=== PATIENT | female | born 2000 | race Caucasian/White ===

== ENCOUNTER 2022-07-25 13:07 | Emergency (ER) | payer OTHER, SELFPAY ==
[2022-07-25 13:09] VITALS: BP 124/89; PULSE 145; RESP 18; TEMP 36.9; O2SAT 96; BMI 21.9
[2022-07-25 13:46] LABS: Absolute Neutrophil Count 16.4 X10^3/uL (2.0-7.7); Basophil# 0.07 X10^3/uL; Basophil% 0.4 % (0-1); Eosinophil# 0.02 X10^3/uL; Eosinophils% 0.1 % (0-5); Hematocrit 41.3 % (37-47); Hemoglobin 13.3 g/dL (12.0-15.0); Lymphocyte % 4.7 % (19-41); Mean Corp Hgb Conc 32.2 g/dL (32-36); Mean Corpuscular Hgb 28.7 pg (27.0-32.0); Mean Platelet Vol. 11.5 fl (6.2-12.0); Monocyte# 1.43 X10^3/uL; Monocyte% 7.5 % (0-10); NRBC Flagged by Analyzer 0 % (0-5); Neutrophil # 16.36 X10^3/uL (2.7-7.7); Neutrophil % 86.4 % (47-70); Platelet Count 228 K/mm3 (150-450); RBC Distribution Width CV 12.7 % (11.6-14.6); RBC Distribution Width SD 41.6 fl (35.1-43.9); Red Blood Count 4.64 M/mm3 (4.2-5.4)
[2022-07-25 13:59] LABS: Anion Gap 8 (5-15); BUN 6 mg/dL (7-18); BUN/Creat Ratio 6.4 RATIO (10-20); Calcium,Total 9.6 mg/dL (8.5-10.1); Chloride 104 mmol/L (98-107); Creatinine, Serum 0.93 mg/dL (0.55-1.02); EST Glomerular Filtration Rate 81 mL/min (>60); Est Glom Filt Rate - Afr Amer 98 mL/min (>60); Estimated Creatinine Clearance 72.81 ml/min; Glucose 108 mg/dL (74-106); Sodium Level 136 mmol/L (136-145)
[2022-07-25 14:04] VITALS: BP 112/73; PULSE 95; RESP 16; O2SAT 98
[2022-07-25] MEDS: 0.9% Normal Saline 1,000 ML 1000 ML IV (14:07)
--- NOTE | 2022-07-25 16:06 | EX.ED.VIS.UR ---
HPI HPI - URI History of Present Illness Chief Complaint: Sore Throat Informant: patient Onset/Context/Timing Onset: Days (5) Context: Gradual Onset Timing: Continuous Quality: Sharp Location: Throat Worsened by: Swallowing, Eating Solids and Drinking Liquids Relieved by: - (Nothing) Associated Symptoms Associated Symptoms: Positive for Sinus Pressure, Myalgias and Nausea; Negative for Nasal Congestion, Headache, Vomiting, Diarrhea, Shortness of Breath, Chest Pain, Nonproductive cough, Hemoptysis or Productive Cough Narrative Narrative: Patient presents with a sore throat that has been getting worse over the last 5 days. Patient states she recently completed a course of antibiotics for strep throat. Patient states that her pain got better when she completed the course of antibiotics. Patient states that a few days after she finished the antibiotics the pain returned and has been getting progressively worse. Patient states her pain is worse with eating, drinking, and swallowing. Patient admits to some nausea but denies any vomiting. Patient admits to some generalized body aches. Patient admits to fever at home. Patient denies any cough. ROS ROS ED Constitutional Constitutional ED: Denies chills or fever(s) Eyes Eyes: Denies blurry vision or change in vision ENT ENT ED: Denies rhinorrhea or sore throat Cardiovascular Cardiovascular: Denies chest pain or palpitations Respiratory/Chest Respiratory/Chest: Denies cough or dyspnea Gastrointestinal Gastrointestinal: Denies nausea or vomiting Genitourinary Genitourinary ED: Denies dysuria or hematuria Musculoskeletal Musculoskeletal: Denies back pain or neck pain Integumentary Denies abscess or rash Neurologic Neurologic: Denies headache(s) or weakness Allergic/Immunologic Allergic/Immunologic ED: Denies mouth swelling or urticaria [facility] Medical History No acute medical problems Home Medications amoxicillin 875 mg-potassium clavulanate 125 mg tablet 875 mg PO Q12H #20 TABLETS 07/25/22 [Rx Last Taken Unknown] Allergy/AdvReac Type Severity Reaction Status Date / Time No Known Allergies Allergy Verified 07/25/22 14:02 Social History Smoking Status: Never smoker EXAM Physical Exam Const Vital Signs: 07/25/22 13:09 07/25/22 14:04 Temperature 98.4 F Temperature Source Temporal Pulse Rate 145 H 95 Respiratory Rate 18 16 Blood Pressure 124/89 H 112/73 Blood Pressure Mean 100 86 Pulse Ox 96 98 Oxygen Delivery Method Room Air Room Air Positive well nourished and well developed General Appearance ED: well developed and NAD HEENT Reports moist mucous membranes normocephalic Throat: posterior oropharynx abnormal Positive for edema and erythema; Negative for exudates Eyes PERRL and EOMs intact bilaterally Neck General: lymphadenopathy anterior cervical tender Resp normal respiratory effort and clear to auscultation bilaterally Cardio Rate: regular rate Rhythm: regular rhythm GI non-tender Palpation: soft Neuro oriented x3, CN's II-XII intact bilaterally and no sensory deficits noted Sensorium / Orientation: alert Motor Exam: strength 5/5 throughout Psych mental status grossly normal MDM MDM MDM Narrative Medical decision making narrative: Differential diagnosis includes recurrent strep pharyngitis, COVID-19 infection, influenza infection, and other viral upper respiratory infection. CBC will be obtained to assess for leukocytosis and anemia. Basic metabolic profile will be obtained to assess for electrolyte abnormality and renal function. COVID-19 rapid antigen will be obtained to assess for COVID infection. Influenza A and influenza B rapid antigen will be obtained to assess for influenza infection. Rapid strep will be obtained to assess for streptococcal pharyngitis. Lab Data Attestation: I reviewed the patient's lab results. Lab results narrative: CBC shows a leukocytosis of 19.0. The remainder was within normal limits. Basic metabolic profile was reviewed and was within normal limits. COVID-19 rapid antigen was reviewed and was negative. Influenza A and influenza B rapid antigens were reviewed and were negative. Rapid strep was reviewed and was negative. Labs: Laboratory Results - last 24 hr 07/25/22 07/25/22 13:40 13:40 WBC 19.0 H RBC 4.64 Hgb 13.3 Hct 41.3 MCV 89.0 MCH 28.7 MCHC 32.2 RDW Std Deviation 41.6 RDW Coeff of Walter 12.7 Plt Count 228 MPV 11.5 Immature Gran % (Auto) 0.900 Neut % (Auto) 86.4 H Lymph % (Auto) 4.7 L [place] % (Auto) 7.5 Eos % (Auto) 0.1 Baso % (Auto) 0.4 Absolute Neuts (auto) 16.4 H Absolute Lymphs (auto) 0.90 Nucleated RBC % 0 Sodium 136 Potassium 4.0 Chloride 104 Carbon Dioxide 24.0 Anion Gap 8 BUN 6 L Creatinine 0.93 Estim Creat Clear Calc 72.81 Est GFR (MDRD) Af Amer 98 Est GFR (MDRD) Non-Af 81 BUN/Creatinine Ratio 6.4 L Glucose 108 H Calcium 9.6 Treatment and Re-Evaluation Narrative: Patient was given IV fluids. Patient is feeling somewhat better on reevaluation. Patient was advised of her findings. Given the leukocytosis, recent strep infection, and the fact that she meets 3 out of 4 Cent[facility] criteria, we will cover the patient with an extended course of antibiotics to cover for bacterial pharyngitis. Patient was instructed to follow-up with her primary care physician in 5 to 7 days. Patient was instructed return if worse in any way. Patient understood and was agreeable with the plan. All questions were answered. Discharge Plan Triage Chief Complaint: Sore Throat Other Complaint: Fever ED Provider: Garrett Martinez Dx/Rx/DC Orders Clinical Impression: Acute pharyngitis Instructions: ED Pharyngitis, Report Pending Prescriptions: New amoxicillin-pot clavulanate [amoxicillin-pot clavulanate] 875-125 mg tablet 875 mg PO Q12H Qty: 20 0RF Primary Care Provider: Care Physician,No Primary Referrals: Mikey Silver MD [Med Staff - Active Staff] - 5-7 Days Care Physician,No Primary [Primary Care Provider] - Disposition Disposition: Home, Self Care
[2022-07-25 16:18] VITALS: BP 107/75; PULSE 95; RESP 16; O2SAT 97
[2022-07-25] MEDS: Amox/Clavulanate 875 MG Tablet PO (16:22)
== END 2022-07-25 16:27 | disposition home or self-care (01) ==
PROVIDERS: Emergency Provider Emergency Medicine; Visit Provider Emergency Medicine
DX: J02.9 Acute pharyngitis, unspecified (principal)
CPT/HCPCS: 80048; 85025; 87428; 87880; 96360; 99283; J7030; A4216

== ENCOUNTER 2022-07-27 12:56 | Emergency (ER) | payer OTHER, SELFPAY ==
[2022-07-27 12:57] VITALS: BP 103/84; PULSE 123; RESP 18; TEMP 36.1; O2SAT 98; BMI 19.6
--- NOTE | 2022-07-27 13:10 | CT_ITS ---
STUDY: CT SOFT TISSUE NECK WITH CONTRAST REASON FOR EXAM: Female, 22 years old. strep throat 2 weeks ago, trouble swallowing and worse pain, antibiotics started 2 days ago. right peritonsillar abscess TECHNIQUE: The patient was scanned in a multi-detector CT scanner. High resolution transaxial imaging was performed following intravenous administration of 75 ml of Isovue 370 contrast material. Sagittal and coronal images were reconstructed. Individualized dose optimization techniques were used for this CT. COMPARISON: None. right peritonsillar abscess FINDINGS: Normal bilateral parotid glands. Normal bilateral test lead spaces. Normal bilateral parapharyngeal spaces. Normal bilateral carotid spaces. Normal bilateral sublingual and submandibular glands and spaces. Normal visualized nasopharynx. Normal retropharyngeal space. Normal perivertebral space. The visualized tongue, tongue base and oropharynx are normal. There are enlarged lymph nodes of the neck, with preservation of normal reji architecture, consistent with lymphadenopathy. There is demonstrated right peritonsillar abscess measuring 23 x 26mm. Left tonsillitis. Normal epiglottis, bilateral vallecula and hypopharynx. The pre-epiglottic and paraglottic adipose spaces are normal. Normal visualized bilateral piriform sinuses, aryepiglottic folds, vocal cords, and arytenoid-cricoid articulations. Normal subglottic trachea. Normal bilateral lobes of the thyroid gland. Normal visualized pulmonary apices. Normal visualized paranasal sinuses. Normal visualized cervical spine. CT/Soft Tissue Neck WITH Contrast IMPRESSION: Left tonsillitis. Right peritonsillar abscess. This is consistent with the patient''s history. Bilateral neck adenopathy. Non standard communication findings protocol was initiated. Electronically Signed: Jose Morales MD at 14:13 EDT ,
--- NOTE | 2022-07-27 13:12 | EX.ED.DYSGE1 ---
HPI <CARLITA Murillo - Last Filed: 07/27/22 14:33> History of Present Illness Chief Complaint: Sore Throat Narrative Narrative: Patient was diagnosed with strep throat on July 11 and completed 10 days of antibiotics. She felt better for about 2 to 3 days and developed a sore throat again a couple days ago. She was seen in the ER July 25 and had negative strep test but was covered with Augmentin. She is taking the antibiotic and ibuprofen but her sore throat is worse especially on the right. It is causing difficulty and pain with swallowing. She was sent from urgent care to rule out peritonsillar abscess. She is able to swallow and is not having difficulty handling oral secretions. No fever or chills. PFSH <CARLITA Murillo Last Filed: 07/27/22 14:33> [facility] Medical History (Updated 07/27/22 @ 14:36 by Brittany Acevedo) History of strep sore throat No acute medical problems Home Medications amoxicillin 875 mg-potassium clavulanate 125 mg tablet 875 mg PO Q12H #20 TABLETS 07/25/22 [Rx Last Taken Unknown] Allergy/AdvReac Type Severity Reaction Status Date / Time No Known Allergies Allergy Verified 07/27/22 13:00 Social History Smoking Status: Never smoker ROS <CARLITA Murillo - Last Filed: 07/27/22 14:33> ROS ED ROS Narrative Constitutional: Negative for fever, chills, malaise. ENT: Positive for sore throat. CVS: Negative for chest pain. Respiratory: Negative for shortness of breath, cough. GI: Negative for abdominal pain, nausea, vomiting. Neuro: Negative for headache. Skin: Negative for rash. EXAM <CARLITA Murillo Last Filed: 07/27/22 14:33> Physical Exam Narrative Exam Narrative: CONST: Patient sitting in no acute distress. EYES: Normal inspection. ENT: Moist mucous membranes, pharyngeal erythema with enlarged right tonsil that touches the uvula with no deviation. Handling secretions normally, no trismus or tongue elevation, sublingual space is soft. Mild change in voice. NECK: Normal inspection. No stridor. No submandibular or submental swelling. RESP: No respiratory distress, CTAB. CVS: Regular rate and rhythm, no murmur, no gallop. SKIN: Color normal, no rash, warm, dry, intact. EXTREMITIES: Normal appearance, no pedal edema. NEURO: Oriented x4. PSYCH: Normal affect. Const Vital Signs: 07/27/22 12:57 07/27/22 14:36 Temperature 97 F L Temperature Source Temporal Pulse Rate 123 H 93 Respiratory Rate 18 18 Blood Pressure 103/84 H Blood Pressure Mean 90 Pulse Ox 98 99 Oxygen Delivery Method Room Air <Dr. Garrett Martinez DO - Last Filed: 07/27/22 21:18> Physical Exam Const Vital Signs: 07/27/22 12:57 07/27/22 14:36 Temperature 97 F L Temperature Source Temporal Pulse Rate 123 H 93 Respiratory Rate 18 18 Blood Pressure 103/84 H Blood Pressure Mean 90 Pulse Ox 98 99 Oxygen Delivery Method Room Air MDM <CARLITA Murillo - Last Filed: 07/27/22 14:33> MDM MDM Narrative Medical decision making narrative: History gathered from: Patient and father Patient with recent tonsillitis on 2 days of Augmentin presents with worsening pain and swelling. She appears well and nontoxic. Heart rate 123, BP 103/84, otherwise normal vital signs. She does have significant right tonsillar swelling that is touching the uvula. No trismus she is handling oral secretions appropriately. Lungs clear. Labs show no leukocytosis is trending down to 11.1. Normal electrolytes and renal function. CT shows 2.6 x 2.3 cm right peritonsillar abscess. Patient was given a liter of IV fluids and Decadron. Case discussed with on-call ENT physician, Dr. Mancini, who agreed with the plan of treatment and will see her in the office 8 AM tomorrow for I&D. Patient was comfortable with this plan. We will keep taking ibuprofen, Augmentin, increasing hydration and was discharged in stable condition. Differential: Tonsillitis, peritonsillar abscess, deep space infection Lab Data Attestation: I reviewed the patient's lab results. Labs: Laboratory Results - last 24 hr 07/27/22 07/27/22 13:25 13:25 WBC 11.1 H RBC 4.56 Hgb 13.0 Hct 40.6 MCV 89.0 MCH 28.5 MCHC 32.0 RDW Std Deviation 41.1 RDW Coeff of Walter 12.5 Plt Count 244 MPV 11.5 Immature Gran % (Auto) 0.800 Neut % (Auto) 76.4 H Lymph % (Auto) 11.4 L [place] % (Auto) 9.8 Eos % (Auto) 1.1 Baso % (Auto) 0.5 Absolute Neuts (auto) 8.5 H Absolute Lymphs (auto) 1.27 Nucleated RBC % 0 Sodium 137 Potassium 3.5 Chloride 107 Carbon Dioxide 26.0 Anion Gap 4 L BUN 9 Creatinine 0.95 Estim Creat Clear Calc 70.35 Est GFR (MDRD) Af Amer 96 Est GFR (MDRD) Non-Af 80 BUN/Creatinine Ratio 9.5 L Glucose 142 H Calcium 9.4 Radiography Diagnostic Testing: Clinical Impression(s) from Imaging Studies Soft Tissue Neck CT 07/27/22 13:10 IMPRESSION: Left tonsillitis. Right peritonsillar abscess. This is consistent with the patient''s history. Bilateral neck adenopathy. Non standard communication findings protocol was initiated. Electronically Signed: Jose Morales MD at 14:13 EDT , ADDENDUM: 07/27/22 1423 IMPRESSION: Left tonsillitis. Right peritonsillar abscess. This is consistent with the patient''s history. Bilateral neck adenopathy. Non standard communication findings protocol was initiated. N.B. : Joaquin Mata DO, confirmed on 07/27/2022 14:16:58 (ET) that the healthcare facility has received the radiology report. Electronically Signed: Jose Morales MD at 14:13 EDT , <Dr. Garrett Martinez DO - Last Filed: 07/27/22 21:18> [facility] Lab Data Labs: Laboratory Results - last 24 hr 07/27/22 07/27/22 13:25 13:25 WBC 11.1 H RBC 4.56 Hgb 13.0 Hct 40.6 MCV 89.0 MCH 28.5 MCHC 32.0 RDW Std Deviation 41.1 RDW Coeff of Walter 12.5 Plt Count 244 MPV 11.5 Immature Gran % (Auto) 0.800 Neut % (Auto) 76.4 H Lymph % (Auto) 11.4 L [place] % (Auto) 9.8 Eos % (Auto) 1.1 Baso % (Auto) 0.5 Absolute Neuts (auto) 8.5 H Absolute Lymphs (auto) 1.27 Nucleated RBC % 0 Sodium 137 Potassium 3.5 Chloride 107 Carbon Dioxide 26.0 Anion Gap 4 L BUN 9 Creatinine 0.95 Estim Creat Clear Calc 70.35 Est GFR (MDRD) Af Amer 96 Est GFR (MDRD) Non-Af 80 BUN/Creatinine Ratio 9.5 L Glucose 142 H Calcium 9.4 Radiography Diagnostic Testing: Clinical Impression(s) from Imaging Studies Soft Tissue Neck CT 07/27/22 13:10 IMPRESSION: Left tonsillitis. Right peritonsillar abscess. This is consistent with the patient''s history. Bilateral neck adenopathy. Non standard communication findings protocol was initiated. Electronically Signed: Jose Morales MD at 14:13 EDT , ADDENDUM: 07/27/22 1423 IMPRESSION: Left tonsillitis. Right peritonsillar abscess. This is consistent with the patient''s history. Bilateral neck adenopathy. Non standard communication findings protocol was initiated. N.B. : Joaquin Mata DO, confirmed on 07/27/2022 14:16:58 (ET) that the healthcare facility has received the radiology report. Electronically Signed: Jose Morales MD at 14:13 EDT , Treatment and Re-Evaluation :: I have personally performed a face to face assessment of the patient and have reviewed the DAPHNIE Note. I performed a substantive portion of the visit including all aspects of the following. My delacruz findings include: History: Patient presents with sore throat that has been getting worse over the past few days. Patient was seen here couple days ago and was started on Augmentin for possible streptococcal pharyngitis. Patient states she has been taking this as prescribed. Patient states her throat is worse today. Patient states it is worse on the right. Patient states her pain is worse with swallowing. Patient denies any fevers or chills. Exam: Vital signs are stable. Patient is afebrile. Patient is in no acute distress. Oral mucosa is pink and moist. There is edema of the tonsils on the right. There is erythema of the tonsils bilaterally. There are no exudates noted. There is no trismus noted. Neck is supple. Trachea is midline. There is no JVD. There is tender anterior cervical lymphadenopathy noted. Cranial nerves II through XII are intact. There are no focal motor or sensory deficits noted. Heart was regular rate and rhythm. Lungs are clear and equal bilaterally. Abdomen is soft and nontender. Medical Decision Making: Patient was advised that this is most likely a peritonsillar abscess. CBC will be obtained to assess for leukocytosis and anemia. Basic metabolic profile will be obtained to assess for renal function and electrolyte abnormality. CT scan of soft tissue neck will be obtained to assess for peritonsillar abscess. Patient was given a dose of dexamethasone here. Patient took her Augmentin earlier today. CBC was reviewed and showed a slight leukocytosis of 11.1. Absolute neutrophil count was mildly elevated at 8.5. Basic metabolic profile was reviewed and was essentially within normal limits. Patient did have a slightly elevated glucose of 142. Case was discussed with Dr. Mancini from ENT. He will follow-up with the patient tomorrow morning. Patient and father understood and were agreeable with the plan. All questions were answered. Discharge Plan Triage Chief Complaint: Sore Throat ED Midlevel Provider: Jillian Reese ED Provider: Garrett Martinez Dx/Rx/DC Orders Clinical Impression: Peritonsillar abscess Instructions: ED Peritonsillar Abscess Prescriptions: No Action amoxicillin-pot clavulanate [amoxicillin-pot clavulanate] 875-125 mg tablet 875 mg PO Q12H Qty: 20 0RF Primary Care Provider: Care Physician,No Primary Referrals: Ashwin Mancini MD [Med Staff - Active Staff] - Care Physician,No Primary [Primary Care Provider] - Activity Restrictions/Additional Instructions: Show up to Dr. Mancini's office 880 a.m. tomorrow morning. This is the ENT specialist and he will drain the abscess if needed. Drink plenty of fluids overnight. Disposition Disposition: Home, Self Care Discharge Date/Time: 07/27/22 14:40
[2022-07-27 13:34] LABS: Absolute Lymphocyte Count 1.27 X10^3/uL (0.83-4.51); Absolute Neutrophil Count 8.5 X10^3/uL (2.0-7.7); Basophil# 0.06 X10^3/uL; Basophil% 0.5 % (0-1); Eosinophil# 0.12 X10^3/uL; Eosinophils% 1.1 % (0-5); Hematocrit 40.6 % (37-47); Lymphocyte # 1.27 X10^3/ul (0.83-4.51); Lymphocyte % 11.4 % (19-41); Mean Corpuscular Hgb 28.5 pg (27.0-32.0); Mean Platelet Vol. 11.5 fl (6.2-12.0); Monocyte# 1.09 X10^3/uL; Monocyte% 9.8 % (0-10); NRBC Flagged by Analyzer 0 % (0-5); Neutrophil % 76.4 % (47-70); Platelet Count 244 K/mm3 (150-450); RBC Distribution Width CV 12.5 % (11.6-14.6); RBC Distribution Width SD 41.1 fl (35.1-43.9); Red Blood Count 4.56 M/mm3 (4.2-5.4); White Blood Count 11.1 K/mm3 (4.4-11.0)
[2022-07-27 13:48] LABS: Anion Gap 4 (5-15); BUN 9 mg/dL (7-18); BUN/Creat Ratio 9.5 RATIO (10-20); Calcium,Total 9.4 mg/dL (8.5-10.1); Chloride 107 mmol/L (98-107); Creatinine, Serum 0.95 mg/dL (0.55-1.02); EST Glomerular Filtration Rate 80 mL/min (>60); Est Glom Filt Rate - Afr Amer 96 mL/min (>60); Estimated Creatinine Clearance 70.35 ml/min; Glucose 142 mg/dL (74-106); Potassium 3.5 mmol/L (3.5-5.1); Sodium Level 137 mmol/L (136-145)
[2022-07-27] MEDS: dexAMETHasone 10 MG/ML Vial IV (14:00)
[2022-07-27] MEDS: 0.9% Normal Saline 1,000 ML 999 ML IV (14:01)
[2022-07-27 14:36] VITALS: PULSE 93; RESP 18; O2SAT 99
== END 2022-07-27 14:40 | disposition home or self-care (01) ==
PROVIDERS: Physician Assistant; Emergency Provider Emergency Medicine; Visit Provider Emergency Medicine
DX: J36 Peritonsillar abscess (principal)
CPT/HCPCS: 70491; 80048; 85025; 96374; 99283; J7030; Q9967; A4216

== ENCOUNTER 2024-04-28 09:33 | Emergency (ER) | payer BC, SELFPAY ==
[2024-04-28 09:34] VITALS: BP 124/80; PULSE 137; RESP 16; TEMP 36.8; O2SAT 100; BMI 21.5
--- NOTE | 2024-04-28 09:59 | EX.ED.VIS.UR ---
HPI HPI - URI History of Present Illness Chief Complaint: Nausea/Vomiting/Diarrhea Detail of Chief Complaint: Cough and fever. Informant: patient Onset/Context/Timing Onset: Today and Yesterday Context: Gradual Onset Timing: Continuous Current Severity: Mild Maximum Severity: Mild Associated Symptoms Associated Symptoms: Positive for Nausea, Vomiting, Diarrhea and Productive Cough (Yellowish sputum.) Narrative Narrative: Healthy 24-year-old female no seen past medical history. URI symptoms with productive cough of yellowish sputum with nausea, vomiting and diarrhea since 7:00 last night. She has had URI symptoms for several days with a fever of high as 101.9. She took a COVID and flu test at home she states it was -2 days ago. Denies any abdominal pain. No hemoptysis. Prior similar symptoms: Yes Recent Illness/Hospitalization: No ROS ROS ED ROS Narrative Nausea, vomiting diarrhea. Fever. Cough of yellow sputum. Constitutional Constitutional ED: Reports fever(s) ENT ENT ED: Denies ear pain Cardiovascular Cardiovascular: Denies chest pain Respiratory/Chest Respiratory/Chest: Reports cough and sputum Gastrointestinal Gastrointestinal: Reports diarrhea, nausea and vomiting; Denies abdominal pain, constipation or melena Genitourinary Genitourinary ED: Denies dysuria or hematuria Musculoskeletal Musculoskeletal: Denies arthralgias Integumentary Denies abscess Neurologic Neurologic: Denies headache(s) Psychiatric Psychiatric: Denies anxiety or depression Endocrine Endocrinology: Denies cold intolerance Hematologic/Lymphatic Hematologic/Lymphatic: Denies easy bleeding Allergic/Immunologic Allergic/Immunologic ED: Denies mouth swelling PFSH PFSH Medical History History of strep sore throat No acute medical problems Home Medications ?Medication ?Instructions ?Recorded ?Last Taken ?Type amoxicillin 875 mg-potassium 875 mg PO Q12H #20 TABLETS 07/25/22 Unknown Rx clavulanate 125 mg tablet norethindrone 1 mg-ethinyl 1 tab PO DAILY 04/28/24 Unknown History estradiol 20 mcg (21)-iron 75 mg (7) tablet (Yvette Fe 05/02 ()) ondansetron 4 mg disintegrating 4 mg PO Q6H PRN nausea and 04/28/24 Unknown Rx tablet vomiting #7 tabs Allergy/AdvReac Type Severity Reaction Status Date / Time No Known Allergies Allergy Verified 04/28/24 09:34 Social History Smoking Status: Current every day smoker tobacco type: e-cigarettes EXAM Physical Exam Narrative Exam Narrative: 24-year-old female no acute distress. Vital signs are stable except she is tachycardic clinically appears dehydrated. Pulse ox 100% on room air no signs of hypoxia. She is afebrile. H EENT exam extremities membranes. Neck nontender no lymphadenopathy. Lungs dry cough. No rales or rhonchi. Equal symmetrical. Heart tachycardic 135 no murmur. Chest wall ribs nontender. Abdomen soft nontender. Back nontender. Moving all 4 extremities. Nontender no edema. Neurologically patient is awake alert. Answer questions following commands. Normal motor strength. Const Vital Signs: 04/28/24 09:34 Temperature 98.3 F Temperature Source Oral Pulse Rate 137 H Respiratory Rate 16 Blood Pressure 124/80 H Blood Pressure Mean 94 Pulse Ox 100 Oxygen Delivery Method Room Air Positive well nourished and well developed; Negative for obese, cachectic or contractures General Appearance ED: well developed and NAD; Negative for cachectic, contractures, cyanotic, diaphoretic or pallor Nutritional Appearance: Negative for cachectic or obese HEENT Reports dry mucous membranes; Denies moist mucous membranes normocephalic and atraumatic Face and Sinus: Negative for sinus tenderness Mouth ED: Yes dry mucous membranes Mouth: dry mucous membranes Throat: posterior oropharynx normal Eyes PERRL and EOMs intact bilaterally General Eye ED: Negative for pale conjunctiva or scleral icterus Neck no lymphadenopathy, supple, no meningeal signs and no JVD General: Negative for anterior neck swelling Resp normal respiratory effort and clear to auscultation bilaterally Resp Narrative: Dry cough. Effort and Inspection: Negative for retractions Auscultation: Negative for rales, rhonchi, wheezes or diminished lung sounds Cardio S1 normal heart sound, S2 normal heart sound and no murmurs Rate: tachycardic GI non-tender, non-distended and no masses Inspection: Negative for abdominal distention Palpation: soft; Negative for tender or guarding Back/Spine no CVA tenderness and normal ROM General Back: Negative for CVA tenderness Cervical Spine: Negative for cervical spine tenderness Thoracic Spine / Upper Back: Negative for thoracic spinal tenderness Lumbar Spine / Lower Back: Negative for lumbar spinal tenderness Sacrum: Negative for tenderness Extremity normal to inspection and full ROM General Extremety ED: Negative for cyanosis or tenderness General Extremity: Negative for cyanosis Neuro oriented x3 and CN's II-XII intact bilaterally Sensorium / Orientation: alert, oriented to person, oriented to place and oriented to time; Negative for orientation impaired, lethargic or stuporous Motor Exam: strength 5/5 throughout Psych mental status grossly normal Attitude: No agitated Mood & Affect: Negative for depressed, anxious or tearful Skin General Skin Exam: Negative for jaundice or pallor Lesions: no lesions Rashes: no rashes MDM MDM MDM Narrative Medical decision making narrative: 24-year-old female clinically appears dehydrated. Most likely viral syndrome. IV fluids. Zofran. P.o. fluid challenge. I am obtaining a chest x-ray to rule out pneumonia. She has had recent negative COVID and flu testing at home. Repeat exam patient doing well at 11:30 AM. Abdomen soft and nontender. Her nausea is resolved with Zofran. She received a liter normal saline. She has been able to hold down liquids. She feels comfortable being discharged home. Treated as a viral syndrome. Prescription sent to her pharmacy for Zofran. History & Record Review Discussion w/independent historian: Patient and Friend Additional record(s) reviewed:: Prior inpatient record, Prior outpatient record and Prior ED visit Radiography Chest X-Ray - ED: 2 View, Read by ED Physician, Normal, Heart, Lungs, Mediastinum, No Acute Disease, Chronic Changes and - (Scoliosis of the thoracic spine.) Diagnostic Testing: Clinical Impression(s) from Imaging Studies Chest X-Ray 04/28/24 10:10 IMPRESSION: Normal x-ray examination of the chest. Electronically Signed: Mlaachi Mckenna MD at 11:23 EST , Chest x-ray, 2 views, AP and lateral, interpreted by myself shows no acute process. Normal cardiac silhouette. Normal lung guadarrama. No pneumonia. Scoliosis of the thoracic spine. Discharge Plan Triage Chief Complaint: Nausea/Vomiting/Diarrhea ED Provider: Joaquin Rodriguez Dx/Rx/DC Orders Clinical Impression: Viral syndrome, Vomiting, Acute dehydration Instructions: ED Dehydration (Adult), ED Viral Syndrome (Adult) Prescriptions: New ondansetron 4 mg tablet,disintegrating 4 mg PO Q6H PRN (Reason: nausea and vomiting) Qty: 7 0RF No Action amoxicillin-pot clavulanate [amoxicillin-pot clavulanate] 875-125 mg tablet 875 mg PO Q12H Qty: 20 0RF norethindrone-e.estradiol-iron [Yvette Fe 05/02 (28)] 1 mg-20 mcg (21)/75 mg (7) tablet 1 tab PO DAILY Primary Care Provider: Care Physician,No Primary Referrals: Garrett Spicer MD [Med Staff - Take Out Waiter] - 3-5 Days if not improving Care Physician,No Primary [Primary Care Provider] - Activity Restrictions/Additional Instructions: Zofran as needed for nausea. Tylenol and Motrin for any fever. Plenty of fluids and rest. Water, 7-Up and Gatorade. Slowly increase diet as tolerated. Follow-up with a local primary care physician if not improving or return if you are feeling worse or unable to keep fluids down. Print Language: Portuguese Disposition Disposition: Home, Self Care
[2024-04-28] MEDS: 0.9% Normal Saline (1000mL) 1,000 ML 1000 ML IV (10:06)
[2024-04-28] MEDS: Ondansetron 4 MG/2 ML Vial IV (10:06)
--- NOTE | 2024-04-28 10:10 | RAD_ITS ---
STUDY: X-RAY CHEST REASON FOR EXAM: Female, 24 years old. cough TECHNIQUE: PA and lateral views of the chest. COMPARISON: None. FINDINGS: The lungs are clear and expanded. There is no demonstrated pleural abnormality. Normal size heart. Normal mediastinum and miranda. Normal visualized pulmonary arteries. Normal visualized aortic arch and descending thoracic aorta. There is a dextroscoliosis of the thoracic spine. Normal visualized ribs, clavicles, and shoulders. There is no demonstrated abnormality of the visualized soft tissue structures of the upper abdomen. RAD/Chest PA and Lateral IMPRESSION: Normal x-ray examination of the chest. Electronically Signed: Malachi Mckenna MD at 11:23 EST ,
[2024-04-28 11:30] VITALS: BP 124/80; PULSE 137; RESP 16; TEMP 36.8; O2SAT 100
--- NOTE | 2024-04-28 14:11 | CM.ED ---
Social Work Reason for consult: No PCP Patient verified that she does not currently have a PCP. [facility] provider given to patient. No further needs identified at this time. Angie Avila, [employer] ADMINISTRATOR, [employer]ACHINE OPERATOR
== END 2024-04-28 11:40 | disposition home or self-care (01) ==
PROVIDERS: Emergency Provider Emergency Medicine; Visit Provider Emergency Medicine
DX: B34.9 Viral infection, unspecified (principal); R11.2 Nausea with vomiting, unspecified; E86.0 Dehydration
CPT/HCPCS: 71046; 96361; 96374; 96376; 99283; A4216; J2405

== ENCOUNTER 2024-07-19 20:48 | Emergency (ER) | payer BC, SELFPAY ==
[2024-07-19 20:48] VITALS: BP 130/75; PULSE 105; RESP 16; TEMP 36.8; O2SAT 97; BMI 22.1
--- NOTE | 2024-07-19 20:51 | RAD_ITS ---
PROCEDURE: HAND MIN 3 VIEWS 07/19/2024 REASON FOR EXAM: INJURY TECHNIQUE: 3 view(s) of the right hand COMPARISON: None FINDINGS: No acute fracture or dislocation. Joint spaces are maintained. No significant soft tissue swelling. No radiopaque foreign body. RAD/Hand Min 3 Views IMPRESSION: No acute fracture or dislocation. Reading Location: [facility]
[2024-07-19 21:37] VITALS: BP 130/75; PULSE 105; RESP 16; TEMP 36.8; O2SAT 97
--- NOTE | 2024-07-19 21:51 | EX.ED.UPPERE ---
HPI History of Present Illness Chief Complaint: Upper Extremity Injury Informant: patient Narrative Narrative: 24-year-old female presenting to the emergency room with right hand pain and swelling. Patient was practicing a routine when she slapped her hand on the ground which resulted in some swelling and bruising on the palmar surface and between the second and third metacarpal. She notes no loss of motion. She is right-handed. She denies any other injuries. [facility] Medical History History of strep sore throat No acute medical problems Home Medications ?Medication ?Instructions ?Recorded ?Last Taken ?Type amoxicillin 875 mg-potassium 875 mg PO Q12H #20 TABLETS 07/25/22 Unknown Rx clavulanate 125 mg tablet norethindrone 1 mg-ethinyl 1 tab PO DAILY 04/28/24 Unknown History estradiol 20 mcg (21)-iron 75 mg (7) tablet (Yvette Fe 05/02 ()) ondansetron 4 mg disintegrating 4 mg PO Q6H PRN nausea and 04/28/24 Unknown Rx tablet vomiting #7 tabs Allergy/AdvReac Type Severity Reaction Status Date / Time grapefruit Allergy Hives Verified 07/19/24 20:50 Social History Smoking Status: Current every day smoker tobacco type: e-cigarettes ROS ROS ED Constitutional Constitutional ED: Denies chills, fever(s) or weight loss Eyes Eyes: Denies change in vision or diplopia ENT ENT ED: Denies ear pain, rhinorrhea or sore throat Cardiovascular Cardiovascular: Denies chest pain, orthopnea, palpitations or racing heartbeat Respiratory/Chest Respiratory/Chest: Denies cough, dyspnea or orthopnea Gastrointestinal Gastrointestinal: Denies abdominal pain, diarrhea, nausea or vomiting Genitourinary Genitourinary ED: Denies dysuria, hematuria or urinary frequency Musculoskeletal Musculoskeletal: Reports other Details: See history of present illness ; Denies arthralgias or myalgias Integumentary Denies abscess or rash Neurologic Neurologic: Denies headache(s) or weakness Psychiatric Psychiatric: Denies anxiety, depression, suicidal ideation or suicidal thoughts Endocrine Endocrinology: Denies polydipsia, polyphagia or polyuria Allergic/Immunologic Allergic/Immunologic ED: Denies mouth swelling, tongue swelling or urticaria EXAM Physical Exam Const Vital Signs: 07/19/24 20:48 07/19/24 21:37 Temperature 98.2 F 98.2 F Temperature Source Oral Pulse Rate 105 H 105 H Respiratory Rate 16 16 Blood Pressure 130/75 H 130/75 H Blood Pressure Mean 93 93 Pulse Ox 97 97 Oxygen Delivery Method Room Air Positive well nourished and well developed General Appearance ED: well developed and NAD HEENT Reports normocephalic, head/scalp atraumatic and moist mucous membranes Eyes PERRL and EOMs intact bilaterally Neck no lymphadenopathy, supple and no JVD Resp normal respiratory effort and clear to auscultation bilaterally Cardio regular rate, regular rhythm and no murmurs GI normal to inspection, nondistended, normoactive bowel sounds and non-tender Palpation: soft Back/Spine no CVA tenderness and normal ROM Extremity Extremity Narrative: Palmar surface of the right hand demonstrates some mild swelling and contusion near the MCP joint between the index and long fingers. Independent testing of the superficialis and profundus tendons are intact. Neurovascular intact with excellent capillary refill. Sensation preserved. General Extremety ED: Negative for edema General Extremity: Negative for edema Neuro oriented x3 and CN's II-XII intact bilaterally Sensorium / Orientation: alert Motor Exam: strength 5/5 throughout Psych mental status grossly normal Mood & Affect: Negative for depressed or tearful Skin no rashes or lesions noted and no wounds MDM MDM MDM Narrative Medical decision making narrative: Differential diagnosis includes but not limited to fracture contusion broken blood vessel tendon injury ligamentous injury nerve injury My independent interpretation plain films of the right hand is no acute fracture. Patient will be discharged home with supportive care return if worsening or concerns History & Record Review Discussion w/independent historian: Patient and Friend Discharge Plan Triage Chief Complaint: Upper Extremity Injury ED Provider: Matthew Torres Dx/Rx/DC Orders Clinical Impression: Contusion of hand Instructions: ED Hand Contusion Prescriptions: No Action amoxicillin-pot clavulanate [amoxicillin-pot clavulanate] 875-125 mg tablet 875 mg PO Q12H Qty: 20 0RF norethindrone-e.estradiol-iron [Yvette Fe 05/02 (28)] 1 mg-20 mcg (21)/75 mg (7) tablet 1 tab PO DAILY ondansetron 4 mg tablet,disintegrating 4 mg PO Q6H PRN (Reason: nausea and vomiting) Qty: 7 0RF Primary Care Provider: Care Physician,No Primary Referrals: [facility] [Other] [place],[facility] [Group of Physicians] - As Needed Care Physician,No Primary [Primary Care Provider] - Print Language: Yoruba Disposition Disposition: Home, Self Care Discharge Date/Time: 07/19/24 21:38
== END 2024-07-19 21:38 | disposition home or self-care (01) ==
PROVIDERS: Emergency Provider Emergency Medicine; Visit Provider Emergency Medicine
DX: S60.221A Contusion of right hand, initial encounter (principal); F17.290 Nicotine dependence, other tobacco product, uncomplicated; X58.XXXA Exposure to other specified factors, initial encounter
CPT/HCPCS: 73130; 99282